=== PATIENT | female | born 1975 | race Two or more races ===

== ENCOUNTER → 2020-08-05 08:12 | Outpatient (BNVA) | payer MEDICAID, SELFPAY | PROVIDERS: PCP Family Medicine; Referring Provider Family Medicine; Visit Provider Nurse Practitioner Family | DX: Z76.89 Persons encountering health services in other specified circumstances (principal) ==

== ENCOUNTER → 2020-09-30 11:19 | Outpatient (BNVA) | payer MEDICAID, SELFPAY | PROVIDERS: PCP Family Medicine; Visit Provider Nurse Practitioner Family | DX: Z76.89 Persons encountering health services in other specified circumstances (principal) ==

== ENCOUNTER 2020-11-26 13:43 | Outpatient (REF) | payer MEDICAID, SELFPAY ==
[2020-11-27 09:21] LABS: BV Int Neg Control Negative (Negative); BV Int Pos Control Positive (Positive)
[2020-11-27 16:02] LABS: C. trachomatis RNA TMA NOT DETECTED (NOT DETECTED); N. gonorrhoeae RNA TMA NOT DETECTED (NOT DETECTED)
[2020-11-30 12:07] LABS: HPV mRNA E6/E7 rflx Not Detected (Not Detected)
== END 2020-11-26 13:44 | disposition home or self-care (01) ==
LOC: HO.LAB 13:43
PROVIDERS: PCP Family Medicine; Visit Provider Obstetrics & Gynecology
DX: Z01.419 Encounter for gynecological examination (general) (routine) without abnormal findings (principal); Z11.3 Encounter for screening for infections with a predominantly sexual mode of transmission; Z11.8 Encounter for screening for other infectious and parasitic diseases; F32.9 Major depressive disorder, single episode, unspecified
CPT/HCPCS: 36415; 87480; 87491; 87510; 87591; 87624; 87660; 88142

== ENCOUNTER → 2020-12-16 10:18 | Outpatient (BNVA) | payer MEDICAID, SELFPAY | PROVIDERS: PCP Family Medicine; Visit Provider Nurse Practitioner Family ==

== ENCOUNTER → 2020-12-24 14:06 | Outpatient (BNVA) | payer MEDICAID, SELFPAY | PROVIDERS: PCP Family Medicine; Visit Provider Nurse Practitioner ==

== ENCOUNTER → 2021-10-15 12:45 | Outpatient (BNVA) | payer MEDICAID, SELFPAY | PROVIDERS: PCP Family Medicine; Referring Provider Family Medicine; Visit Provider Internal Medicine | DX: R07.89 Other chest pain (principal); I10 Essential (primary) hypertension; G47.33 Obstructive sleep apnea (adult) (pediatric); E11.8 Type 2 diabetes mellitus with unspecified complications | CPT/HCPCS: 93005; 99202 ==

== ENCOUNTER 2022-03-03 14:18 | Outpatient (REF) | payer MEDICAID, SELFPAY ==
[2022-03-03 15:08] LABS: Hematocrit 37.3 % (37.0-47.0); Hemoglobin 11.9 g/dl (12.0-16.0); Mean Corpuscular HGB Conc 31.9 g/dl (31.0-35.0); Mean Corpuscular Volume 81.4 fL (80.0-98.0); Mean Platelet Volume 10.6 fL (9.4-12.3); Platelet Count 235 X10*3/uL (160-400); Red Blood Count 4.58 X10*6/uL (4.20-5.50); White Blood Count 9.4 X10*3/uL (4.8-10.8)
[2022-03-03 16:03] LABS: HCG Quantitative < 2 mIU/mL; TSH reflex Free T4 2.08 uIU/mL (0.32-4.0)
[2022-03-03 16:10] LABS: Syphilis Screen Nonreactive (Nonreactive)
[2022-03-03 18:23] LABS: CT PCR NOT DETECTED (Not Detect.); NG PCR NOT DETECTED (Not Detect.)
[2022-03-04 08:23] LABS: BV Int Neg Control Negative (Negative); BV Int Pos Control Positive (Positive)
[2022-03-04 08:44] LABS: HBc Num1 0.07 S/CO (0.00-0.79); HIV AB/AG Nonreactive (Nonreactive); HIV Num 1 0.06 S/CO (0.00-0.99); Hepatitis B Core Antibody Nonreactive (Nonreactive); ~HepC Num1 0.14 S/CO (0.00-0.79); ~Hepatitis C Antibody Nonreactive (Nonreactive)
== END 2022-03-03 14:19 | disposition home or self-care (01) ==
LOC: HO.LAB 14:18
PROVIDERS: PCP Family Medicine; Visit Provider Advanced Practice Midwife
DX: Z01.411 Encounter for gynecological examination (general) (routine) with abnormal findings (principal); Z11.3 Encounter for screening for infections with a predominantly sexual mode of transmission; Z11.4 Encounter for screening for human immunodeficiency virus [HIV]; R10.2 Pelvic and perineal pain; Z20.2 Contact with and (suspected) exposure to infections with a predominantly sexual mode of transmission; N92.0 Excessive and frequent menstruation with regular cycle; N93.9 Abnormal uterine and vaginal bleeding, unspecified
CPT/HCPCS: 36415; 84443; 84702; 85027; 86704; 86780; 86803; 87389; 87480; 87491; 87510; 87591; 87660

== ENCOUNTER 2022-04-14 13:46 | Outpatient (REF) | payer MEDICAID, SELFPAY ==
--- NOTE | ~2022-04-14 | US_ITS ---
EXAMINATION: US PELVIS CLINICAL INFORMATION: Excessive and frequent menstruation with regular cycles COMPARISON: Previous pelvic ultrasound from 2013 TECHNIQUE: Ultrasound of the pelvis is performed using both transabdominal and transvaginal transducers along with Doppler. Transvaginal imaging is performed due to inadequate visualization transabdominally. FINDINGS: The uterus is anteverted and measures 11 x 5 x 6 cm. There is a 1.6 x 2.1 x 2.7 cm hypoechoic lesion in the uterine fundus questionable for a fibroid. Uterine echotexture is heterogeneous. The endometrium does not appear thickened measuring 4 mm. There are nabothian cysts in the cervix. The ovaries are normal. The right ovary measures 3 x 2 x 2.2 cm. The left ovary measures 2.3 x 2.2 x 1.5 cm. There is no fluid in the pelvis. US/US pelvic and transvaginal IMPRESSION: Heterogeneous-appearing uterus. Normal thickness endometrium. Question small fundal uterine fibroid.
== END 2022-04-14 13:47 | disposition home or self-care (01) ==
LOC: HO.US 13:46
PROVIDERS: Visit Provider Advanced Practice Midwife
DX: N92.0 Excessive and frequent menstruation with regular cycle (principal)
CPT/HCPCS: 76830; 76856

== ENCOUNTER 2022-04-28 15:58 | Outpatient (REF) | payer MEDICAID, SELFPAY | END 2022-04-28 15:59 | disposition home or self-care (01) | LOC: HO.LAB 15:58 | PROVIDERS: Visit Provider Advanced Practice Midwife | DX: D25.9 Leiomyoma of uterus, unspecified (principal); R30.0 Dysuria; Z71.2 Person consulting for explanation of examination or test findings | CPT/HCPCS: 87086; 87088; 87186; 99212 ==

== ENCOUNTER → 2022-06-25 15:28 | Outpatient (BNVA) | payer MEDICAID, SELFPAY | PROVIDERS: PCP Family Medicine; Referring Provider Family Medicine; Visit Provider Nurse Practitioner | DX: R11.2 Nausea with vomiting, unspecified (principal); R10.9 Unspecified abdominal pain; K59.00 Constipation, unspecified; R00.0 Tachycardia, unspecified; R06.00 Dyspnea, unspecified | CPT/HCPCS: 99212 ==

== ENCOUNTER 2022-06-29 12:30 | Outpatient (REF) | payer MEDICAID, SELFPAY ==
[2022-06-29 13:49] LABS: Alanine Aminotransferase 60 U/L (0-31); Albumin Level 3.9 g/dL (3.5-5.0); Alkaline Phosphatase 99 U/L (39-117); Amylase 35 U/L (28-100); Anion Gap 12 (12-20); Aspartate Amino Transferase 30 U/L (5-31); Bilirubin Total 0.2 mg/dL (0.0-1.0); Blood Urea Nitrogen 13 mg/dL (9-16); Calcium 9.2 mg/dL (8.4-10.2); Carbon Dioxide 23 mmol/L (22-29); Chloride 108 mmol/L (96-108); Estimated Glomerular Filt Rate > 60; Glucose Random 81 mg/dL (60-115); Lipase 17 U/L (8-78); Potassium 4.3 mmol/L (3.3-5.1); Sodium 139 mmol/L (135-145); Total Protein 7.1 g/dL (6.5-8.0)
== END 2022-06-29 12:31 | disposition home or self-care (01) ==
LOC: HO.LAB 12:30
PROVIDERS: PCP Family Medicine; Visit Provider Nurse Practitioner
DX: E11.8 Type 2 diabetes mellitus with unspecified complications (principal); R10.9 Unspecified abdominal pain; R11.2 Nausea with vomiting, unspecified; K59.00 Constipation, unspecified; I10 Essential (primary) hypertension
CPT/HCPCS: 36415; 80053; 82150; 83690

== ENCOUNTER 2022-07-08 14:11 | Outpatient (REF) | payer MEDICAID, SELFPAY ==
--- NOTE | ~2022-07-08 | CT_ITS ---
EXAMINATION: CT ABDOMEN AND PELVIS WITH CONTRAST CLINICAL INFORMATION: Abdominal pain COMPARISON: Previous pelvic ultrasound March 2022 TECHNIQUE: Multidetector volumetric images were obtained from the superior aspect of the liver through the pubic symphysis following administration 85 mL of Omnipaque 350 intravenous contrast. Sagittal and coronal reformatted images were obtained on the technologist's workstation. Oral contrast: Yes This CT examination was performed using dose optimization techniques as appropriate, variously including the following: *Automated exposure control *Adjustment of mA and/or kV according to patient size (this includes techniques or standardized protocols for targeted exams where dose is matched to indication/reason for exam; i.e. extremities or head) *Use of iterative reconstruction technique DLP: 603 mGy-cm FINDINGS: LUNG BASES: The visualized lung bases are unremarkable. LIVER, GALLBLADDER, AND BILIARY TREE: The liver is normal in size, shape, and attenuation. No focal hepatic lesion or biliary ductal dilatation is present. The gallbladder is unremarkable with no evidence of radiopaque gallstones, gallbladder wall thickening, or obvious pericholecystic inflammatory changes. PANCREAS: Unremarkable. SPLEEN: Unremarkable. ADRENAL GLANDS: Unremarkable. KIDNEYS AND URETERS: The kidneys are normal in size, shape, and attenuation. No hydronephrosis, hydroureter, or calculi seen. No perinephric stranding. BLADDER: Unremarkable. GASTROINTESTINAL TRACT: The small and large bowel are unremarkable. The appendix is unremarkable. ABDOMINAL WALL: Diastasis of the rectus muscles and umbilical hernia containing fat. LYMPH NODES: Normal. VASCULAR: Unremarkable. PELVIC VISCERA: Prominent heterogeneous appearing uterus. Normal adnexa. OSSEOUS STRUCTURES: Unremarkable. CT/CT abdomen pelvis w IV con IMPRESSION: Slightly prominent heterogeneous appearing uterus. Small umbilical hernia containing fat. Fleischner guidelines were followed.
[2022-07-08] MEDS: iohexoL 350 MG/ML 100 ML INFUS..BTL IV (15:53)
== END 2022-07-08 14:12 | disposition home or self-care (01) ==
LOC: HO.CT 14:11
PROVIDERS: PCP Family Medicine; Visit Provider Nurse Practitioner
DX: R10.9 Unspecified abdominal pain (principal); R11.2 Nausea with vomiting, unspecified
CPT/HCPCS: 74177; Q9967

== ENCOUNTER 2024-09-24 16:21 | Outpatient (REF) | payer MEDICAID, SELFPAY ==
[2024-09-24 17:42] LABS: MANUAL DIFF FLAG NO
[2024-09-24 17:55] LABS: Basophils Percent Auto 0.3 % (0-2); Eosinophils Absolute Auto 0.3 X10*3/uL (0.0-0.4); Eosinophils Percent Auto 3.4 % (0-4); Hematocrit 40.7 % (37.0-47.0); Hemoglobin 13.3 g/dl (12.0-16.0); Imm Gran Abs Auto 0.03 X10*3/uL (0.00-0.03); Imm Gran Pct Auto 0.3 % (0.0-0.4); Lymphocytes Absolute Auto 2.7 X10*3/uL (1.2-4.9); Lymphocytes Percent Auto 31.8 % (20-40); Mean Corpuscular HGB Conc 32.7 g/dl (31.0-35.0); Mean Corpuscular Volume 82.6 fL (80.0-98.0); Mean Platelet Volume 11.6 fL (9.4-12.3); Monocytes Absolute Auto 0.6 X10*3/uL (0.1-1.2); Monocytes Percent Auto 7.5 % (2-11); Neutrophils Absolute Auto 4.9 x10*3/uL (2.0-8.3); Neutrophils Percent Auto 56.7 % (45-73); Platelet Count 229 X10*3/uL (160-400); Red Blood Count 4.93 X10*6/uL (4.20-5.50); White Blood Count 8.6 X10*3/uL (4.8-10.8)
[2024-09-24 18:18] LABS: Alanine Aminotransferase 57 U/L (0-31); Albumin Level 3.8 g/dL (3.5-5.0); Alkaline Phosphatase 95 U/L (39-117); Anion Gap 12 (12-20); Aspartate Amino Transferase 35 U/L (5-31); Bilirubin Total 0.3 mg/dL (0.0-1.0); Calcium 8.7 mg/dL (8.4-10.2); Carbon Dioxide 23 mmol/L (22-29); Chloride 108 mmol/L (96-108); Cholesterol 187 mg/dL (<200); Estimated Glomerular Filt Rate > 60; Glucose Random 96 mg/dL (60-115); HDL Cholesterol 43 mg/dL (>40); Iron 105 mcg/dL (30-160); LDL Cholesterol Calculated 113 mg/dL (<100); Percent Iron Saturation 47 % (15-50); Potassium 3.9 mmol/L (3.3-5.1); Sodium 139 mmol/L (135-145); Total Iron Binding Capacity 225 mcg/dL (228-428); Total Protein 7.5 g/dL (6.5-8.0); Triglycerides 159 mg/dL (<150); Unsaturated Iron Binding 120 ug/dL
[2024-09-24 18:33] LABS: TSH reflex Free T4 1.36 uIU/mL (0.32-4.0); Vitamin D 25-OH Total 32.7 ng/mL (>30)
[2024-09-24 18:41] LABS: Blood Urea Nitrogen 7 mg/dL (9-16)
== END 2024-09-24 16:22 | disposition home or self-care (01) ==
LOC: HO.CHCLDS 16:21
PROVIDERS: Visit Provider Family Medicine
DX: R53.83 Other fatigue (principal)
CPT/HCPCS: 36415; 80053; 80061; 82306; 83540; 84443; 85025

== ENCOUNTER 2024-10-04 18:00 | Outpatient (REF) | payer MEDICAID, SELFPAY ==
[2024-10-05 09:05] LABS: Bacterial Vaginosis PCR NEGATIVE (Negative); Candida Group PCR NOT DETECTED (Not Detect); Candida glab krusei PCR NOT DETECTED (Not Detect); Trichomonas vaginalis PCR NOT DETECTED (Not Detect)
[2024-10-05 09:08] LABS: CT PCR NOT DETECTED (Not Detect.); NG PCR NOT DETECTED (Not Detect.)
== END 2024-10-04 18:01 | disposition home or self-care (01) ==
LOC: HO.HHCLNP 18:00
PROVIDERS: Visit Provider Internal Medicine
DX: R30.0 Dysuria (principal)
CPT/HCPCS: 81515; 87491; 87591

== ENCOUNTER 2025-02-20 15:05 | Outpatient (REF) | payer MEDICAID, SELFPAY ==
--- OUTSIDE RECORDS SUMMARY | 2025-02-20 15:15 | XMS_ITS | Clinical Summary ---
Author Organization [facility] [employer] Address [address] [place] [address] [address] [place] [address] Care Team Providers Care Logistics Support Name Role Phone Sarita Townsend MD Primary Care Provider [phone] Allergies Active Allergy Reactions Criticality Noted Date Comments Pork Allergy 01/21/2023 Other reaction(s): Unknown body region Medications topiramate (Topamax) 25 MG tablet Take 25 mg by mouth at bedtime. 022 Active SUMAtriptan (Imitrex) 50 MG tablet TAKE 1 TABLET BY MOUTH DAILY NEEDED FOR MIGRANE HEADACHE. MAY REPEAT DOSE 2 HR AFTER IF SYMPTOMS PRESIST 022 Active albuterol (2.5 MG/3ML) 0.083% nebulizer solutionIndicat ions:Asthma, unspecified asthma severity, unspecified whether complicated, unspecified whether persistent Take 3 mL by nebulization every 4 (four) hours if needed for wheezing. 100 mL 3 023 Active FLUoxetine (PROzac) 40 MG capsule Take 40 mg by mouth in the morning. 023 Active ziprasidone (Geodon) 20 MG capsule Take 20 mg by mouth in the morning. 023 Active Blood Pressure kitIndications: Primary hypertension 1 Units Once per day. 1 kit 025 Active psyllium (Metamucil Smooth Texture) 58.6 % powder Take 5.12 g (3 g of fiber) by mouth 2 times daily. Mix in 8 ounces of water. 283 g 11 025 2025 Active Bacillus Coagulans-Inuli n (Probiotic) 1-250 BILLION-MG capsule Take 2 capsules by mouth Once per day. 60 capsule 5 Active cholecalciferol (Vitamin D-3) 50 MCG (1999 UT) tablet Take 2 tablets (100 mcg) by mouth Once per day. 30 tablet Active famotidine (Pepcid) 20 MG tablet Take 1 tablet (20 mg) by mouth 2 times daily. 60 tablet Active losartan (Cozaar) 100 MG tabletIndicatio ns:Hypertension , unspecified type Take 1 tablet (100 mg) by mouth Once per day. 90 tablet Active amLODIPine (Norvasc) 10 MG tabletIndicatio ns:Hypertension , unspecified type Take 1 tablet (10 mg) by mouth Once per day. 90 tablet Active omeprazole (PriLOSEC) [address] capsuleIndicati ons:Gastroesoph ageal reflux disease, unspecified whether esophagitis present Take 1 capsule (20 mg) by mouth before breakfast. Do not crush or chew. 90 capsule 1 Active albuterol (ProAir HFA) 108 (90 Base) MCG/ACT inhalerIndicati ons:Asthma, unspecified asthma severity, unspecified whether complicated, unspecified whether persistent Inhale 2 puffs every 4 (four) hours. 18 g 3 Active fluticasone furoate (Arnuity Ellipta) 100 MCG/ACT inhaler Inhale 1 puff Once per day. Rinse mouth with water after use to reduce aftertaste and incidence of candidiasis. Do not swallow. 1 each 025 2025 Active zoster vaccine-recombi nant adjuvanted (Shingrix) 50 MCG/0.5ML vaccineIndicati ons:Encounter for immunization Inject 0.5 mL (50 mcg) into the muscle 1 (one) time for 1 dose. 0.5 mL 025 2024 Active cholecalciferol (Vitamin D-3) 50 MCG (1999 UT) tablet Take 100 mcg by mouth in the morning. 022 2024 Discontinued(R eorder (will not trigger notification to Pharmacy)) albuterol (ProAir HFA) 108 (90 Base) MCG/ACT inhalerIndicati ons:Asthma, unspecified asthma severity, unspecified whether complicated, unspecified whether persistent Inhale 2 puffs every 4 (four) hours. 18 g 3 023 2024 Discontinued(R eorder (will not trigger notification to Pharmacy)) loperamide (Imodium) 2 MG capsule TAKE 1-2 CAPSULES BY MOUTH IF NEEDED IN THE MORNING AT NOON IN THE EVENING AND AT BEDTIME FOR DIARRHEA FOR UP TO 10 DAYS 023 2024 Discontinued(T herapy completed) famotidine (Pepcid) 20 MG tablet Take 20 mg by mouth 2 times daily. 023 2024 Discontinued(R eorder (will not trigger notification to Pharmacy)) Antacid Regular Strength 200-200-20 MG/5ML oral suspension TAKE 30 ML BY MOUTH TWICE DAILY NEEDED FOR GAS 023 2024 Discontinued(T herapy completed) omeprazole (PriLOSEC) [address] capsuleIndicati ons:Gastroesoph ageal reflux disease, unspecified whether esophagitis present TAKE 1 CAPSULE BY MOUTH EVERY DAY BEFORE A MEAL 90 capsule 1 024 2024 Discontinued(R eorder (will not trigger notification to Pharmacy)) Multiple Vitamin (multivitamin) tabletIndicatio ns:Class 2 obesity without serious comorbidity with body mass index (BMI) of 36.0 to 36.9 in adult, unspecified obesity type Take 1 tablet by mouth Once per day. 90 tablet 1 024 2024 Discontinued(T herapy completed) fluticasone furoate (Arnuity Ellipta) 100 MCG/ACT inhaler Inhale 1 puff Once per day. Rinse mouth with water after use to reduce aftertaste and incidence of candidiasis. Do not swallow. 1 each 11 024 2024 Discontinued(R eorder (will not trigger notification to Pharmacy)) econazole nitrate 1 % creamIndication s:Seborrheic dermatitis Apply topically 2 times daily. 30 g 024 2024 hydrocortisone 0.5 % ointmentIndicat ions:Seborrheic dermatitis Apply topically 2 times daily. 28 g 024 2024 Discontinued(T herapy completed) ketoconazole (NIZOral) 2 % shampooIndicati ons:Seborrheic dermatitis Apply topically 2 (two) times a week. 120 mL 2 024 2024 Discontinued(T herapy completed) fluocinolone ([place]-Smoothe/ FS Body) 0.01 % external oilIndications: Seborrheic dermatitis Apply topically 3 times daily. 118 mL 024 2024 metroNIDAZOLE (MetroCream) 0.75 % creamIndication s:Rosacea Apply topically 2 times daily. 45 g 1 024 2024 Discontinued(T herapy completed) hydrOXYzine pamoate (Vistaril) 25 MG capsuleIndicati ons:Seborrheic dermatitis,Leonor cea Take 1 capsule (25 mg) by mouth every 12 (twelve) hours if needed for itching. 60 capsule 1 024 2024 Discontinued(T herapy completed) naproxen (Naprosyn) 500 MG tablet TAKE 1 TABLET BY MOUTH WITH BREAKFAST AND WITH EVENING MEAL 60 tablet 024 2024 Discontinued(T herapy completed) ascorbic acid (Vitamin C) 500 MG tabletIndicatio ns:Class 2 obesity without serious comorbidity with body mass index (BMI) of 36.0 to 36.9 in adult, unspecified obesity type Take 1 tablet (500 mg) by mouth Once per day. 90 tablet 1 025 2024 Discontinued(T herapy completed) ferrous gluconate (Fergon) 324 (38 Fe) MG tabletIndicatio ns:Iron deficiency Take 1 tablet (324 mg) by mouth Once per day. 90 tablet 1 025 2024 Discontinued(T herapy completed) losartan (Cozaar) 100 MG tabletIndicatio ns:Hypertension , unspecified type Take 1 tablet (100 mg) by mouth Once per day. 90 tablet 1 025 2024 Discontinued(R eorder (will not trigger notification to Pharmacy)) hydrocortisone 2.5 % creamIndication s:Seborrheic dermatitis Apply topically 2 times daily. 20 g 025 2024 Discontinued(T herapy completed) Bacillus Coagulans-Inuli n (Probiotic) 1-250 BILLION-MG capsule Take 2 capsules by mouth Once per day. 60 capsule 5 025 2024 Discontinued(R eorder (will not trigger notification to Pharmacy)) amLODIPine (Norvasc) 10 MG tabletIndicatio ns:Hypertension , unspecified type TAKE 1 TABLET BY MOUTH EVERY DAY 90 tablet 1 025 2024 Discontinued(R eorder (will not trigger notification to Pharmacy)) hydrocortisone 0.5 % cream Apply topically 2 times daily. 024 2024 Discontinued(T herapy completed) Active Problems Problem Noted Date Diagnosed Date Acute gastroenteritis 02/20/2025 BROWN (dyspnea on exertion) 02/20/2025 Neck mass 09/24/2024 Gynecologic disorder 09/24/2024 Assessment & Plan (09/24/2024 3:58 PM EST): Referral to OBGYN for further evaluation. Moderate persistent asthma without complication 09/24/2024 Dysphagia 02/06/2024 Assessment & Plan (02/07/2024 10:49 AM EDT): Symptoms with liquids and solids, does have a hx of GERD symptoms, reports she feels well in this aspect, will send for barium swallow Chronic pain of left knee 02/06/2024 Assessment & Plan (02/06/2024 10:55 AM EDT): _+ medial line tenderness, crepitus, neg apprehension test r/o OA, send standing X ray. Hypertension 10/18/2023 Assessment & Plan (09/24/2024 3:58 PM EST): Discussed medications and refills as needed. Assessment & Plan (10/18/2023 11:08 AM EST): Controlled. Cont current regimen. Class 2 obesity without seri ous comorbidity with body mass index (BMI) of 36.0 to 36.9 in adult 05/24/2023 Assessment & Plan (02/06/2024 1:41 PM EDT): Discussed calorie deficit, recommended reduction of 20-30% of maintenance calories. Recommended to decrease soda and sugary beverage consumption. Recommended at least 20 g per meal of protein to assist with satiety. Recommended at least 150 min/week of moderate intensity exercise. Will start on Wegovy. Relevant Medication Semaglutide-Weight Management (Wegovy) 0.25 MG/0.5 ML solution auto-injector Assessment & Plan (10/18/2023 11:08 AM EST): Discussed calorie deficit, recommended reduction of 20-30% of maintenance calories Recommended to decrease soda and sugary beverage consumption. Recommended at least 20 g per meal of protein to assist with satiety. Recommended at least 150 min/week of moderate intensity exercise. Assessment & Plan (05/24/2023 4:33 PM EDT): Discussed calorie deficit, recommended reduction of 20-30% of maintenance calories; correspondence representative referral offered. Recommended to decrease soda and sugary beverage consumption. Recommended at least 20 g per meal of protein to assist with satiety. Recommended at least 150 min/week of moderate intensity exercise. Referred to bariatric surgery. Candidate for GLP-1 but unfortunately insurance does not cover. Umbilical hernia without obstruction and without gangrene 05/24/2023 Assessment & Plan (05/24/2023 4:34 PM EDT): Requested a referral to another surgeon given that she does not agree with opinion of provider that is currently following her given her declined to proceed with surgery per pt recall Diarrhea 10/14/2022 Assessment & Plan (01/21/2023 3:54 PM EDT): Patient with persistent intermittent diahrrea, abdominal pain, and nausea. Will refer to gastroenterology for further evaluation and start on Levaquin. Assessment & Plan (10/14/2022 12:51 PM EST): Reports watery diarrhea for the last week, she is very insistent that she wants testing. Labs order, will f/u with results. Screening examination for ST D (sexually transmitted disease) 10/14/2022 Assessment & Plan (10/14/2022 12:48 PM EST): Requested STI testing, orders placed Chest pain 10/14/2022 Assessment & Plan (10/14/2022 12:48 PM EST): Chronic, already has been seen by cardiology for this in [facility], poor historian unclear if different from before, at this point recommended for her to followup with cardiology. Headache 03/27/2015 Assessment & Plan (09/24/2024 4:04 PM EST): Patient adamant she needs head imaging, reports these headaches are different from her chronic migraines, reports daily occipital headaches, reports prior trauma from [address] in the area[address] Ordering CT scan for further evaluation. Franco's thyroiditis 03/27/2015 Depressive disorder 12/31/2013 Rosacea 01/09/2013 Allergic rhinitis 01/09/2013 Psychotic disorder 02/09/2012 Anxiety state 02/09/2012 Encounters Date Type Department Care Team Description 02/20/2025 2:00 PM EDT Office Visit [facility] [address] [place] [address] Sarita Townsend MD Acute gastroenteritis (Primary Dx); Hypertension, unspecified type; Gastroesophageal reflux disease, unspecified whether esophagitis present; Asthma, unspecified asthma severity, unspecified whether complicated, unspecified whether persistent; Breast cancer screening by mammogram; Colon cancer screening; Immunization due; Encounter for immunization; BROWN (dyspnea on exertion) 02/20/2025 Travel 02/20/2025 Refill [facility] [address] [place] [address] Sarita Townsend MD Class 2 obesity without serious comorbidity with body mass index (BMI) of 36.0 to 36.9 in adult, unspecified obesity type 02/19/2025 Telephone [facility] [address] [place] [address] Sarita Townsend MD CHART PREP 01/30/2025 Patient Outreach [facility] [address] [place] [phone] Sarita Townsend MD Care Coordination (CHW outreach for SDOH PT-1 - LVM ) 01/30/2025 Telephone [facility] [address] [place] [phone] Sarita Townsend MD PT1 01/29/2025 Telephone [facility] [address] [place] [address] Sarita Townsend MD 01/29/2025 Telephone [facility] [address] [place] [phone] Sarita Townsend MD Appointment Request 01/25/2025 Telephone [facility] [address] [place] [address] Sarita Townsend MD No Show 12/27/2024 Telephone [facility] [address] [place] [phone] Sarita Townsend MD Appointment Request 12/12/2024 Telephone [facility] [address] [place], [place] [phone] Sarita Townsend MD Walk-In 11/30/2024 Population Health Risk Score [facility] () Department [address] [place] [phone] Provider, Population Health Generic from Last 3 Months Immunizations Immunization Administration Dates Next Due INFLUENZA INJECTABLE QUADRIV ALANT CCIIV4 MDCK Multi-dose vial 06/29/2019 Influenza Injectable Quadriv alant Preservative Free IIV4 MDCK 06/18/2020,10/24/2017 Influenza injectable quadriv alent IIV4 with preservative 08/19/2015 Influenza injectable quadrivalent preservative f ree 05/30/2018,09/09/2016 Influenza, IIV3, injectable 10/13/2021, 5 Influenza, Split (incl. purified surface antigen ) 06/30/2012 Influenza, seasonal, injectable, preservative fr ee 09/24/2024,06/07/2016 Moderna Covid-19 Vaccine 12+ 12/25/2020 Pfizer Covid-19 Vaccine 12+ 09/24/2024, Pneumococcal Conjugate PCV 20 02/20/2025 Tdap 02/06/2024,06/30/2012 Family History Medical History Relation Name Comments Sleep apnea Father Asthma Mother Lupus Mother Relation Name Status Comments Father Mother Social History Tobacco Use Types Packs/Day Years Used Date Smoking Tobacco: Never Passive Smoke Exposure: Never Smokeless Tobacco: Never Tobacco Cessation:Counseling Given: Not Answered Alcohol Use Standard Drinks/Week Comments Never 0 (1 standard drink = 0.6 oz pur e alcohol) Depression Answer Date Recorded Patient Health Questionnaire-9 Score 11 02/20/2025 Patient Health Questionnaire-9 Score 11 02/20/2025 Last PHQ-9: Questionnaire Data Not on file 0 02/20/2025 Housing Stability Answer Date Recorded What is your housing situation today? I have bc rene 01/30/[address] you li ve. Do you have problems with any of the following? None of the above 01/30/2024 Food Insecurity Answer Date Recorded Within the past 12 months, y ou worried that your food would run out before you got money to buy more: Never True 01/30/2024 Within the past 12 months,th e food you bought just didn't last and you didn't have enough money to get more: Never True Transportation Answer Date Recorded In the past 12 months, has l ack of transportation kept you from medical appts, meetings, work or from getting things needed for daily living? No 01/30/2024 Utilities Answer Date Recorded In the past 12 months, has t he electric, gas, oil or water company threatened to shut off services in your home? No 01/30/2024 Depression Answer Date Recorded Patient Health Questionnaire-2 Score 3 02/20/2025 Comments Unknown Sex and Gender Information Value Date Recorded Sex Assigned at Female 07/19/2022 10:21 AM EDT Legal Sex Female 10:21 AM EDT Gender Identity Female 07/19/2022 10:21 AM EDT Sexual Orientation Choose not to disclose 2021 10:21 AM EDT Last Filed Vital Signs Vital Sign Reading Time Taken Comments Blood Pressure 136/84 02/20/2025 2:09 PM EDT Pulse 90 02/20/2025 2:09 PM EDT Temperature 36.7 ??C (98.1 ??F) 02/20/2025 2:09 PM ED T Respiratory Rate 18 02/20/2025 2:09 PM EDT Oxygen Saturation 98% 02/20/2025 2:09 PM EDT Inhaled Oxygen Concentration - - Weight 93.4 kg (206 lb) 02/20/2025 2:09 PM EDT Height 165.1 cm (5' 5 ) 02/20/2025 2:09 PM EDT Body Mass Index 34.28 02/20/2025 2:09 PM EDT Plan of Treatment Health Maintenance Due Date Last Done Comments CT Colonography 1974 Colonoscopy 1974 Colorectal Cancer Screening 1974 FIT DNA/Cologuard 1974 FIT 1974 FOBT 1974 Sigmoidoscopy 1974 Disability Screening 1974 Family Planning (PISQ) 1989 Hepatitis B Vaccines (1 of 3 - 19+ 3-dose series) 1993 Mammogram 05/14/2021 05/14/2019, 03/07/2018 Zoster Vaccines (1 of 2) 2024 SDOH Screening 01/29/2025 01/30/2024 Depression Monitoring 08/22/2025 02/20/2025, 025 Alcohol/Substance Use Screening 09/24/2025 09/24/2024 Cervical Cancer Screening 11/26/2025 HPV/Cotest 11/26/2025 11/26/2020, 11/17, 07/08/2020 Pap Smear 11/26/2025 11/26/2020, 07/08/2020 Tobacco Screening 02/20/2026 02/20/2025 Lipid Panel 09/24/2029 09/24/2024, 02/24/2021 DTaP/Tdap/Td Vaccines (3 - Td or Tdap) 02/05/2034 02/06/2024, 06/30/2012 RSV Patients and Patients Aged 60 years or older (1 - 1-dose 75+ series) 2049 HIV Screening Completed 10/14/2022, 03/03/2022 Hepatitis C Screening Completed 10/14/2022, 06/15/2 022 COVID-19 Vaccine Completed 09/24/2024, , 09/27/2022, Additional history exists Influenza Vaccine Completed 09/24/2024, , 06/18/2020, Additional history exists Pneumococcal Vaccine: 50+ Years Completed 02/20/2025 HIB Vaccines Aged Out No longer eligi ble based on patient's age to complete this topic HPV Vaccines Aged Out No longer eligi ble based on patient's age to complete this topic Hepatitis A Vaccines Aged Out No long er eligible based on patient's age to complete this topic IPV Vaccines Aged Out No longer eligi ble based on patient's age to complete this topic Meningococcal B Vaccine Aged Out No l onger eligible based on patient's age to complete this topic Meningococcal Vaccine Aged Out No isidra apolinar eligible based on patient's age to complete this topic RSV under 20 months Aged Out No longe r eligible based on patient's age to complete this topic Rotavirus Vaccines Aged Out No longer eligible based on patient's age to complete this topic Procedures Procedure Name Priority Date/Time Associated Diagnosis Comments LIPID PANEL, STANDARD Routine 09/24/2024 4:22 PM EST Other fatigue HEPATITIS C AB W/REFL TO HCV RNA, QN, PCR Routine 10/14/2022 12:04 PM EST Screening examination for STD (sexually transmitted disease) HIV 1/2 ANTIGEN/ANTIBODY, FOURTH GENERATION W/RFL Routine 10/14/2022 12:04 PM EST Screening examination for STD (sexually transmitted disease) ZZZ HISTORICAL HPV E6/E7 RFLX ELENA 16 18/45 Routine 11/26/2020 2:41 PM EST HM PAP/HPV Routine 11/26/2020 BI MAMMOGRAM DIAGNOSTIC BILATERAL Routine 05/14/2019 4:54 PM EDT from Last 3 Months or Most Recently Relevant to Health Maintenance Results * (ABNORMAL) Lipid Panel, Standard (09/24/2024 4:22 PM EST) Triglycerides 159(H) <150 mg/dL [facility] Comment:Desirable Triglyceri de: less than 150 mg/dLBorderline High Triglyceride 150-199 mg/dLHigh Triglyceride: 200-499 mg/dLVery High Triglyceride: greater than or equal to 5OO mg/dL Cholesterol 187 <200 mg/dL [facility] Comment:Desirable Cholestero l: less than 200 mg/dLBorderline High Cholesterol: 200-239 mg/dLHigh Cholesterol: greater than 239 mg/dL LDL Cholesterol Calculated 113(H) <100 mg/dL [facility] Comment:Desirable LDL: less than 100 mg/dLNear Optimal/Above Optimal LDL: 110- 129 mg/dLBorderline High LDL: 130-159 mg/dLHigh LDL: 160-189 mg/dLVery High LDL: greater than or equal to 190 mg/dL HDL Cholesterol 43 >40 mg/dL [facility] Comment:Desirable HDL: great er than 40 mg/dL Note: This HDL assay may give artificially low results in patients with liver disease. Blood Venous blood specimen / Unknown 09/24/2024 4:22 PM EST 09/24/2024 5:35 PM EST us Sarita Townsend MD LAB BLOOD ORDERABLES Final Re sult [facility] [address] [place], [place] [phone] * Hepatitis C Antibody with Reflex to HCV, RNA, Quantitative, Real-Time PCR (10/14/2022 12:04 PM EST) Hepatitis C Antibody NON-REACT ALTON NON-REACT ALTON [facility] [place] [facility] Index <0.02 <1.00 [facility] Comment: HCV antibody was non-reactive. There is no laboratory evidence of HCV infection. In most cases, no further action is required. However, if recent HCV exposure is suspected, a test for HCV RNA (test code 35710) is suggested. For additional information please refer to http://education.TrulySocial/faq/QBU64k7 (This link is being provided for informational/ educational purposes only.) Blood Venous blood specimen / Unknown 10/14/2022 12:04 PM EST 10/14/2022 12:05 PM EST Sarita Townsend MD LAB BLOOD ORDERABLES Final Re sult Performing Organization Address City/[facility]/ZIP Co de Phone Number [address], [place] [address] [facility] [place] [facility] [address] [place] [address], ([address]) [place] [address] * HIV-1/2 Antigen and Antibodies, Fourth Generation, with Reflexes (10/14/2022 12:04 PM EST) HIV Antigen/Antibody, 4th Generation NON-REAC TIVE NON-REAC TIVE [facility] Comment: HIV-1 antigen and HIV-1/HIV-2 antibodies were not detected. There is no laboratory evidence of HIV infection. PLEASE NOTE: This information has been disclosed to you from records whose confidentiality may be protected by state law. ??If your state requires such protection, then the state law prohibits you from making any further disclosure of the information without the specific written consent of the person to whom it pertains, or as otherwise permitted by law. A general authorization for the release of medical or other information is NOT sufficient for this purpose. ?? For additional information please refer to http://education.TrulySocial/faq/XNU525 (This link is being provided for informational/ educational purposes only.) The performance of this assay has not been clinically validated in patients less than 2 years old. Blood Venous blood specimen / Unknown 10/14/2022 12:04 PM EST 10/14/2022 12:05 PM EST Sarita Townsend MD LAB BLOOD ORDERABLES Final Re sult [address], [place] [address] [facility] [address] [place] [address], ([address]) [place] [phone] * HPV E6/E7 RFLX ELENA 16 18/45 (11/26/2020 2:41 PM EST) HPV mRNA E6/E7 rflx Not Detected Not Detected [facility] Comment: Methodology: Outbound Supervisor-Mediated Amplification This assay detects E6/E7 viral messenger RNA (mRNA) from 14 high-risk HPV types (16,18,31,33,35,39,45,51,52,56,58,59,66,68). The analytical performance characteristics of this assay have been determined by [employer]. The modifications have not been cleared or approved by the FDA. This assay has been validated pursuant to the CLIA regulations and is used for clinical purposes. For additional information, please refer to http://education.TrulySocial/faq/RRS216q1 (This link if provided for information/ educational purposes only.) THIS TEST WAS PERFORMED AT: [facility] [address] [place] [address],[address] [place], [place] ??[phone] PATRICK AU MD 11/26/2020 2:41 PM EST Historical Provider HISTORICAL/NON ORDERABLE LABS Final Result [facility] [address] * Hm Pap Smear (11/26/2020) Historical Provider HEALTH MAINTENANCE Final Result * 3D BILATERAL DIAGN MAMMO 1 (05/14/2019 4:54 PM EDT) Anatomical Region Laterality Modality Breast Bilateral Mammography 05/14/2019 4:54 PM EDT Narrative 05/14/2019 4:54 PM EDT Refer to the Notes tab for result details [facility] Procedure: 3D BILATERAL DIAGN MAMMO 1 Procedure Note Provider, MD Kate - 12/11/2022 Refer to the Notes tab for result details [facility] Procedure: 3D BILATERAL DIAGN MAMMO 1 Navin Baker PHYTOPATHOLOGIST IMG BI PROCEDURES Final Result from Last 3 Months or Most Recently Relevant to Health Maintenance Insurance C3 Care Teams Logistics Support Relationship Specialty Start Date End Date Sarita Townsend MD [address] [place] [phone] PCP - General Family Medicine 06/30/21 Carrol Townsend Ceramic DesignerSenior Telecommunications Specialist 12/12/23 Irvin Gama, PMHNP-[address] [phone] Nurse Practitioner Psychiatry 01/25/25
[2025-02-20 17:50] LABS: MANUAL DIFF FLAG NO
[2025-02-20 18:10] LABS: Basophils Percent Auto 0.4 % (0-2); Eosinophils Percent Auto 3.4 % (0-4); Hematocrit 38.5 % (37.0-47.0); Hemoglobin 12.7 g/dl (12.0-16.0); Imm Gran Abs Auto 0.02 X10*3/uL (0.00-0.03); Imm Gran Pct Auto 0.2 % (0.0-0.4); Lymphocytes Percent Auto 33.8 % (20-40); Mean Corpuscular Hemoglobin 26.9 pg (27.0-33.0); Mean Corpuscular Volume 81.6 fL (80.0-98.0); Mean Platelet Volume 11.5 fL (9.4-12.3); Monocytes Percent Auto 7.1 % (2-11); Neutrophils Absolute Auto 4.6 x10*3/uL (2.0-8.3); Neutrophils Percent Auto 55.1 % (45-73); Platelet Count 248 X10*3/uL (160-400); Red Blood Count 4.72 X10*6/uL (4.20-5.50); Red Cell Distribution Width 13.9 % (11.0-16.0); White Blood Count 8.3 X10*3/uL (4.8-10.8)
[2025-02-20 18:11] LABS: Eosinophils Absolute Auto 0.3 X10*3/uL (0.0-0.4); Lymphocytes Absolute Auto 2.8 X10*3/uL (1.2-4.9); Monocytes Absolute Auto 0.6 X10*3/uL (0.1-1.2)
[2025-02-20 18:14] LABS: B Type Natriuretic Peptide < 10 pg/mL (<100)
[2025-02-20 18:44] LABS: Alanine Aminotransferase 47 U/L (0-31); Albumin Level 3.9 g/dL (3.5-5.0); Alkaline Phosphatase 96 U/L (39-117); Anion Gap 9 (12-20); Aspartate Amino Transferase 41 U/L (5-31); Bilirubin Total 0.3 mg/dL (0.0-1.0); Blood Urea Nitrogen 8 mg/dL (9-16); Calcium 8.8 mg/dL (8.4-10.2); Carbon Dioxide 26 mmol/L (22-29); Chloride 107 mmol/L (96-108); Cholesterol 204 mg/dL (<200); Estimated Glomerular Filt Rate > 60; Glucose Random 82 mg/dL (60-115); HDL Cholesterol 46 mg/dL (>40); LDL Cholesterol Calculated 131 mg/dL (<100); Potassium 3.7 mmol/L (3.3-5.1); Sodium 138 mmol/L (135-145); Total Protein 7.3 g/dL (6.5-8.0); Triglycerides 138 mg/dL (<150)
[2025-02-21 05:08] LABS: HBS Num1 1.08 mIU/mL (0-7.99); HBc Num1 0.09 S/CO (0.00-0.79); HBsAGNum1 0.29 S/CO (0.00-0.99); Hepatitis B Core Antibody Nonreactive (Nonreactive); Hepatitis B Surface Antigen Negative (Negative); ~Hepatitis B Surface Antibody NONREACTIVE (Nonreactive)
== END 2025-02-20 15:06 | disposition home or self-care (01) ==
LOC: HO.CHCLDS 15:05
PROVIDERS: Visit Provider Family Medicine
DX: R06.09 Other forms of dyspnea (principal); Z23 Encounter for immunization; I10 Essential (primary) hypertension
CPT/HCPCS: 36415; 80053; 80061; 83880; 84443; 85025; 86704; 86706; 87340